=== PATIENT | male | born 1980 | race Caucasian/White ===

== ENCOUNTER 2017-02-17 19:42 | Emergency (ER) | payer OTHER ==
[2017-02-17 20:19] VITALS: BP 124/81; PULSE 100; RESP 20; TEMP 99.4; O2SAT 100
--- NOTE | 2017-02-17 21:20 | C.PDOC ---
History Of Present Illness 36 y/o male presents to ED with c/o cough, congestion, and chills for 3 days. Patient states he has not tried any medications for symptoms. Otherwise, denies headache, fever, nausea, vomiting, diarrhea, or other associated symptoms. Time Seen by Provider: 02/17/17 20:20 Chief Complaint (Nursing): Cough, Cold, Congestion History Per: Patient History/Exam Limitations: no limitations Onset/Duration Of Symptoms: Days Current Symptoms Are (Timing): Still Present Sick Contacts (Context): None Associated Symptoms: Chills, Cough, Nasal Congestion. denies: Vomiting, Diarrhea Ear Symptoms: Bilateral: None Recent travel outside of the [place]: No Past Medical History Reviewed: Historical Data, Nursing Documentation, Vital Signs Vital Signs: Last Vital Signs Temp 99.4 F 02/17/17 20:17 Pulse 100 H 02/17/17 20:17 Resp 20 02/17/17 20:17 BP 124/81 02/17/17 20:17 Pulse Ox 100 02/17/17 22:13 - Medical History PMH: No Chronic Diseases Family History: States: Unknown Family Hx - Social History Hx Alcohol Use: No Hx Substance Use: No Review Of Systems Except As Marked, All Systems Reviewed And Found Negative. Constitutional: Positive for: Chills. Negative for: Fever ENT: Positive for: Nose Congestion. Negative for: Throat Pain Cardiovascular: Negative for: Chest Pain Respiratory: Positive for: Cough. Negative for: Shortness of Breath Gastrointestinal: Negative for: Nausea, Vomiting, Abdominal Pain, Diarrhea Skin: Negative for: Rash Physical Exam - Physical Exam Appears: Well, Non-toxic, No Acute Distress Skin: Normal Color, Warm, Dry Head: Atraumatic, Normacephalic, Other ((+) 2 cm non tender, non erythematous, non fluctuant nodule to the right usperior scalp (pt notes it has been there a long time)) Eye(s): bilateral: Normal Inspection, EOMI Ear(s): Bilateral: Normal Nose: Normal Oral Mucosa: Moist Throat: Normal, No Erythema, No Exudate Neck: Normal ROM, Supple Lymphatic: Normal Exam Chest: Symmetrical Cardiovascular: Rhythm Regular Respiratory: Normal Breath Sounds, No Rales, No Rhonchi, No Wheezing Gastrointestinal/Abdominal: Soft, No Tenderness Back: Normal Inspection Extremity: Normal ROM, Capillary Refill (< 2 sec. ) Neurological/Psych: Oriented x3, Normal Speech, Normal Cognition ED Course And Treatment O2 Sat by Pulse Oximetry: 100 (RA) Pulse Ox Interpretation: Normal Progress Note: Treated with Motrin. On reassessment, patient is resting comfortably, and is in no acute distress. Discussed with pt symptoms likely viral, instruct ed follow up with clinic/PMD within 1-2 days for [id number] and symptomatic treatment. Disposition - Disposition Disposition: HOME/ ROUTINE Disposition Time: 21:19 Condition: GOOD Additional Instructions: Follow up with your primary medical doctor or clinic in 2-5 days for further evaluation. Take medications as prescribed. Return to the emergency department at any time if symptoms persist or worsen. Prescriptions: Ibuprofen [Motrin] 600 mg PO Q6 PRN #20 tab PRN Reason: Pain, Mild (1-3) Guaifenesin/D-Methorphan Hb/PE [Mucinex Fast-Max Congest-Cough] 1 each PO Q6 # 20 tablet Instructions: Upper Respiratory Infection (ED) - Clinical Impression Clinical Impression: Upper respiratory infection - PA / [employer] / Resident Statement MD/DO has reviewed & agrees with the documentation as recorded. - Scribe Statement The provider has reviewed the documentation as recorded by the Tony Barton Provider Scribe Attestation: All medical record entries made by the Scribe were at my direction and personally dictated by me. I have reviewed the chart and agree that the record accurately reflects my personal performance of the history, physical exam, medical decision making, and the department course for this patient. I have also personally directed, reviewed, and agree with the discharge instructions and disposition.
== END 2017-02-17 22:05 | disposition home or self-care (01) ==
LOC: C.ER 19:42
DX: J06.9 Acute upper respiratory infection, unspecified (principal)

== ENCOUNTER 2018-01-04 13:12 | Emergency (ER) | payer OTHER ==
[2018-01-04 13:43] VITALS: RESP 16; TEMP 98.3; O2SAT 98
--- NOTE | 2018-01-04 14:16 | C.PDOC ---
Time Seen by Provider: 01/04/18 13:40 Chief Complaint (Nursing): Cough, Cold, Congestion Past Medical History Vital Signs: Last Vital Signs Temp 98.3 F 01/04/18 13:38 Pulse 83 01/04/18 13:38 Resp 16 01/04/18 13:38 BP 161/90 H 01/04/18 13:38 Pulse Ox 98 01/04/18 13:38 Family History: States: Unknown Family Hx - Social History Hx Alcohol Use: No Hx Substance Use: No ED Course And Treatment O2 Sat by Pulse Oximetry: 98 Pulse Ox Interpretation: Normal Progress Note: On re-eval, pt is afebrile, hemodynamicaly stable. NOn-toxic. Tolerate PO well in ED. PulsEOx 98% RA. ENT: no acute findings. neck: Supple , (-) meningeal sign. Lungs: CTA B/L, BS equal B/L. Abd: benign. Neurologicaly intact. Pt has clinical findings c/w Influenza-like illness. Pt advised on course of ds. ref. to f/u with PMD in 2-3 days for re-eval,. return to ED if any worsening or new changes. Disposition Counseled Patient/Family Regarding: Diagnosis, Need For Followup, Rx Given - Disposition Referrals: John Suarez MD [Staff Provider] - Disposition: HOME/ ROUTINE Disposition Time: 14:15 Condition: STABLE Additional Instructions: Encourage fluids Take medication as prescribed Follow up with PMD in 2-3 days for re-evaluation. return to ED if any worsening or new changes. Instructions: Influenza (ED)
--- NOTE | 2018-01-04 14:19 | C.PDOC ---
History Of Present Illness 37-year-old male, presents to the emergency department with complaints of one- day duration of nasal congestion, runny nose, generalized weakness, and body aches. He denies nausea/vomiting, back pain, dizziness, symptoms, change in bowel habits or any other associated symptoms. Additionally patient reports a chronic "bump on head for seven years." Denies any numbness/weakness, fevers, nausea/vomiting, diarrhea, or any other associated symptoms. No other complaints at this time. Time Seen by Provider: 01/04/18 13:40 Chief Complaint (Nursing): Cough, Cold, Congestion Past Medical History Reviewed: Historical Data, Nursing Documentation, Vital Signs Vital Signs: Last Vital Signs Temp 98.3 F 01/04/18 13:38 Pulse 83 01/04/18 13:38 Resp 16 01/04/18 13:38 BP 161/90 H 01/04/18 13:38 Pulse Ox 98 01/04/18 14:25 Family History: States: No Known Family Hx - Social History Hx Alcohol Use: No Hx Substance Use: No Review Of Systems Constitutional: Negative for: Fever ENT: Positive for: Nose Congestion Respiratory: Positive for: Cough. Negative for: Shortness of Breath, Sputum Gastrointestinal: Negative for: Vomiting Skin: Negative for: Rash Neurological: Negative for: Weakness, Numbness, Dizziness Physical Exam - Physical Exam Appears: Well, Non-toxic, No Acute Distress Skin: Normal Color, Warm, Dry, No Rash Head: Normacephalic Eye(s): bilateral: PERRL Ear(s): Bilateral: Normal Nose: No Flaring, Discharge (scant, clear B/L) Oral Mucosa: Moist Neck: Trachea Midline, Supple, Other ((-)meningeal signs) Cardiovascular: Rhythm Regular, No Murmur Respiratory: No Decreased Breath Sounds, No Accessory Muscle Use, No Stridor, No Wheezing Gastrointestinal/Abdominal: Soft, No Tenderness, No Guarding Extremity: Normal ROM, No Deformity, No Swelling Neurological/Psych: Oriented x3, Normal Speech ED Course And Treatment O2 Sat by Pulse Oximetry: 98 (RA) Pulse Ox Interpretation: Normal Progress Note: On re-eval, pt is afebrile, hemodynamicaly stable. NOn-toxic. Tolerate PO well in ED. PulsEOx 98% RA. ENT: no acute findings. neck: Supple , (-) meningeal sign. Lungs: CTA B/L, BS equal B/L. Abd: benign. Neurologicaly intact. Pt has clinical findings c/w Influenza-like illness. Pt advised on course of ds. ref. to f/u with PMD in 2-3 days for re-eval,. return to ED if any worsening or new changes. Disposition - Disposition Referrals: John Suarez MD [Staff Provider] - Disposition: HOME/ ROUTINE Disposition Time: 14:15 Condition: STABLE Additional Instructions: Encourage fluids Take medication as prescribed Follow up with PMD in 2-3 days for re-evaluation. return to ED if any worsening or new changes. Prescriptions: Benzonatate [Tessalon Perle] 100 mg PO TID #14 capsule Oseltamivir Phosphate [Tamiflu] 75 mg PO BID #10 capsule Instructions: Influenza (ED) Forms: [facility] (H[place]er) - Clinical Impression Clinical Impression: Influenza-like illness - Scribe Statement The provider has reviewed the documentation as recorded by the Scribe (Herminio Feng) All medical record entries made by the Scribe were at my direction and personally dictated by me. I have reviewed the chart and agree that the record accurately reflects my personal performance of the history, physical exam, medical decision making, and the department course for this patient. I have also personally directed, reviewed, and agree with the discharge instructions and disposition.
[2018-01-04 14:48] VITALS: BP 133/85; PULSE 85
== END 2018-01-04 14:48 | disposition home or self-care (01) ==
LOC: C.ER 13:12
DX: J11.1 Influenza due to unidentified influenza virus with other respiratory manifestations (principal); F17.210 Nicotine dependence, cigarettes, uncomplicated